=== PATIENT | male | born 1990 | race African-American/Black ===

== ENCOUNTER 2017-08-02 22:40 | Emergency (ER) | payer MEDICAID, OTHER ==
[~2017-08-02] VITALS: Ht 188 cm; Wt 81.8 kg
[2017-08-02 22:44] VITALS: BP 147/105
== END 2017-08-03 00:24 | disposition home or self-care (01) ==
LOC: ED 23:59
DX: S31.811D Laceration without foreign body of right buttock, subsequent encounter (principal); W34.09XD Accidental discharge from other specified firearms, subsequent encounter; Y92.89 Other specified places as the place of occurrence of the external cause; Y99.8 Other external cause status
CPT/HCPCS: 99283